=== PATIENT | female | born 1940 | race Caucasian/White ===

== ENCOUNTER 2024-05-10 11:22 | Inpatient (IN) | payer MEDICARE ==
--- NOTE | 2024-05-10 12:04 | ED ---
SOB HPI - General Source: patient, RN notes reviewed Mode of arrival: ambulatory Limitations: no limitations - History of Present Illness MD Complaint: shortness of breath, cough <Elsie Granger - Last Filed: 05/10/24 12:02> <Aneta Nunez - Last Filed: 05/12/24 17:59> - General Chief Complaint: Shortness of Breath Stated Complaint: Low oxygen Time Seen by Provider: 05/10/24 12:00 - History of Present Illness Initial Comments: Quick Note: This is an 84-year-old female who presents to the emergency department for shortness of breath. States that it started a few days ago. She was admitted overnight at [facility] 4 days ago for the same issue. Her heart rate was around 150 bpm at that time. They talked about the possibility of A- fib or congestive heart failure, but never definitively diagnosed her with anything. States that she continues to feel short of breath. Reports associated coughing. This morning her pulse ox was 86%. Denies any associated chest pain or history of similar symptoms in the past. (Elsie Granger) 84-year-old female who presents emergency department reporting shortness of breath. Reports that she was just admitted to [facility] 4 days ago. She states that she was short of breath. She was diagnosed with A-fib, congestive heart failure and dehydration. She got discharged home on colchicine and metoprolol. She has been taking his medications but remained short of breath. Her pulse ox is morning was 86%. She denies any chest pain. No history of congestive heart failure. She does not take any diuretics at home. Does admit to lower extremity swelling. No history of DVT or PE. No calf pain or swelling. No fevers, chills or cough. No other alleviating, precipitating or modifying factors (Aneta Nunez) - Related Data Home Medications Medication Instructions Recorded Confirmed Atorvastatin [Lipitor] 20 mg PO HS 05/10/24 05/10/24 Colchicine 0.3 mg PO BID 05/10/24 05/10/24 Ibandronate Sodium [Boniva] 150 mg PO QMONTHLY 05/10/24 05/10/24 Latanoprost [Latanoprost 0.005%] 1 drop BOTH EYES HS 05/10/24 05/10/24 Loratadine [Claritin] 10 mg PO DAILY 05/10/24 05/10/24 Metoprolol Succinate (ER) [Toprol 25 mg PO HS 05/10/24 05/10/24 Xl] Montelukast [Singulair] 10 mg PO DAILY 05/10/24 05/10/24 Omeprazole [PriLOSEC] 20 mg PO HS 05/10/24 05/10/24 Vit C/E/Zn/Coppr/Lutein/Zeaxan 1 cap PO BID 05/10/24 05/10/24 [Preservision Areds 2 Softgel] Allergies Allergy/AdvReac Type Severity Reaction Status Date / Time No Known Allergies Allergy Verified 05/10/24 17:29 Review of Systems ROS Other: All systems not noted in ROS Statement are negative. <Elsie Granger - Last Filed: 05/10/24 12:02> ROS Other: All systems not noted in ROS Statement are negative. <Aneta Nunez - Last Filed: 05/12/24 17:59> ROS Statement: Those systems with pertinent positive or pertinent negative responses have been documented in the HPI. Past Medical History Past Medical History: No Reported History Past Surgical History: Appendectomy Additional Past Surgical History / Comment(s): mastectomy Past Psychological History: No Psychological Hx Reported Smoking Status: Never smoker Past Alcohol Use History: None Reported Past Drug Use History: None Reported <Elsie Granger - Last Filed: 05/10/24 12:02> General Exam Limitations: no limitations <Elsie Granger - Last Filed: 05/10/24 12:02> General appearance: alert, in no apparent distress Head exam: Present: atraumatic, normocephalic, normal inspection Eye exam: Present: normal appearance, PERRL, EOMI. Absent: scleral icterus, conjunctival injection, periorbital swelling ENT exam: Present: normal exam, mucous membranes moist Neck exam: Present: normal inspection. Absent: tenderness, meningismus, lymphadenopathy Respiratory exam: Present: decreased breath sounds (At the bases). Absent: respiratory distress, wheezes, rales, rhonchi, stridor Cardiovascular Exam: Present: regular rate, normal rhythm, normal heart sounds. Absent: systolic murmur, diastolic murmur, rubs, gallop, clicks GI/Abdominal exam: Present: soft, normal bowel sounds. Absent: distended, tenderness, guarding, rebound, rigid Extremities exam: Present: pedal edema. Absent: tenderness, joint swelling, calf tenderness Back exam: Present: normal inspection Neurological exam: Present: alert, oriented X3, CN II-XII intact Psychiatric exam: Present: normal affect, normal mood Skin exam: Present: warm, dry, intact, normal color. Absent: rash <Aneta Nunez - Last Filed: 05/12/24 17:59> - General Exam Comments Initial Comments: Visual Physical Exam Vital signs reviewed General: Well-appearing, nontoxic, no acute distress. Head: Normocephalic, atraumatic Eyes: PERRLA, EOMI ENT: Airway patent Chest: Nonlabored breathing Skin: No visual rash, normal skin tone Neuro: Alert and oriented 3 Musculoskeletal: No gross abnormalities (Elsie Granger) Course Vital Signs 05/10/24 05/10/24 11:25 17:49 Temperature 97.6 F Pulse Rate 110 H 98 Respiratory 18 16 Rate Blood Pressure 138/78 155/79 O2 Sat by Pulse 93 L 98 Oximetry Medical Decision Making <Elsie Granger - Last Filed: 05/10/24 12:02> - Lab Data Result diagrams: 05/11/24 04:34 05/12/24 06:39 <Aneta Nunez - Last Filed: 05/12/24 17:59> - Medical Decision Making I performed the QuickNote portion of this chart. Signed Elsie Granger PA-C. (Elsie Granger) Was pt. sent in by a medical professional or institution ([facility], LENS ASSORTER, urgent care, hospital, or [facility]...) When possible be specific @ -No Did you speak to anyone other than the patient for history (EMS, parent, family, police, friend...)? What history was obtained from this source @ -I spoke to her family at bedside who helps provide history Did you review nursing and triage notes (agree or disagree)? Why? @ -I reviewed and agree with nursing and triage notes Were old charts reviewed (outside hosp., previous admission, EMS record, old EKG, old radiological studies, urgent care reports/EKG's, [facility] records)? Report findings @ -I requested discharge summary and echo from [facility] Differential Diagnosis (chest pain, altered mental status, abdominal pain women, abdominal pain men, vaginal bleeding, weakness, fever, dyspnea, syncope, headache, dizziness, GI bleed, back pain, seizure, CVA, palpatations, mental health, musculoskeletal)? @ -Differential Dyspnea: Coronary syndrome, arrhythmia, tamponade, asthma, COPD, pulmonary embolism, pneumonia, pneumothorax, pulmonary effusion, anaphylaxis, diabetic ketoacidosis, flailed chest, pulmonary contusion, diaphragmatic rupture, anemia, neuromuscular, this is not meant to be an all-inclusive list. EKG interpreted by me (3pts min.). @ -Yes and demonstrates sinus tachycardia with a rate of 103. DC interval 128. QRS 113. QTc of 406. No acute ST segment elevations or depressions X-rays interpreted by me (1pt min.). @ -Yes which demonstrates pulmonary edema CT interpreted by me (1pt min.). @ -Yes which does not demonstrate a PE U/S interpreted by me (1pt. min.). @ -None done What testing was considered but not performed or refused? (CT, X-rays, U/S, labs)? Why? @ -None What meds were considered but not given or refused? Why? @ -None Did you discuss the management of the patient with other professionals (professionals i.e. , PA, LENS ASSORTER, lab, RT, psych nurse, social contact worker, porter marina, teacher, technology officer, vocational case manager)? Give summary @ -Spoke with Sheet for admission Was smoking cessation discussed for >3mins.? @ -No Was critical care preformed (if so, how long)? @ -No Were there social determinants of health that impacted care today? How? (Homelessness, low income, unemployed, alcoholism, drug addiction, transportation, low edu. Level, literacy, decrease access to med. care, [place] [facility], rehab)? @ -No Was there de-escalation of care discussed even if they declined (Discuss DNR or withdrawal of care, Hospice)? DNR status @ -No What co-morbidities impacted this encounter? (DM, HTN, Smoking, COPD, CAD, Cancer, CVA, ARF, Chemo, Hep., AIDS, mental health diagnosis, sleep apnea, morbid obesity)? @ -A-fib Was patient admitted / discharged? Hospital course, mention meds given and route, prescriptions, significant lab abnormalities, going to OR and other pertinent info. @ -Upon arrival patient seen and evaluated in hallway 10. Thorough history and physical exam was performed. Laboratory studies were conducted. Chest x-ray was performed. This is followed by a CT of the chest due to hypoxia with elevated D-dimer. CT and chest x-ray demonstrate signs of volume overload. She was given 40 mg of Lasix. I did recommend admission for which the patient was agreeable. I spoke with Dr. Doss for the admission Undiagnosed new problem with uncertain prognosis? @ -No Drug Therapy requiring intensive monitoring for toxicity (Heparin, Nitro, Insulin, Cardizem)? @ -No Were any procedures done? @ -No Diagnosis/symptom? @ -Acute hypoxic respiratory failure, acute volume overload Acute, or Chronic, or Acute on Chronic? @ -Acute Uncomplicated (without systemic symptoms) or Complicated (systemic symptoms)? @ -Complicated Side effects of treatment? @ -No Exacerbation, Progression, or Severe Exacerbation? @ -No Poses a threat to life or bodily function? How? (Chest pain, [place], MA, pneumonia, PE, COPD, DKA, ARF, appy, cholecystitis, CVA, Diverticulitis, Homicidal, Suicidal, threat to staff... and all critical care pts) @ -No (Aneta Nunez) - Lab Data Lab Results 05/10/24 05/10/24 05/10/24 Range/Units 13:15 13:15 13:15 WBC 6.4 (3.8-10.6) k/uL RBC 3.49 L (3.80-5.40) m/uL Hgb 10.6 L (11.4-16.0) gm/dL Hct 33.0 L (34.0-46.0) % MCV 94.6 (80.0-100.0) fL MCH 30.3 (25.0-35.0) pg MCHC 32.0 (31.0-37.0) g/dL RDW 13.4 (11.5-15.5) % Plt Count 318 (150-450) k/uL MPV 8.7 Neutrophils % 81 % Lymphocytes % 8 % Monocytes % 8 % Eosinophils % 1 % Basophils % 0 % Neutrophils # 5.2 (1.3-7.7) k/uL Lymphocytes # 0.5 L (1.0-4.8) k/uL Monocytes # 0.5 (0-1.0) k/uL Eosinophils # 0.1 (0-0.7) k/uL Basophils # 0.0 (0-0.2) k/uL Hypochromasia Slight PT 11.4 (10.0-12.5) sec INR 1.0 (<1.2) APTT 22.5 (22.0-30.0) sec D-Dimer 2.89 H (<0.60) mg/L FEU Sodium 140 (137-145) mmol/L Potassium 3.8 (3.5-5.1) mmol/L Chloride 110 H (98-107) mmol/L Carbon Dioxide 20 L (22-30) mmol/L Anion Gap 10 mmol/L BUN 15 (7-17) mg/dL Creatinine 1.02 (0.52-1.04) mg/dL Est GFR (CKD-EPI)AfAm 59 (>60 ml/min/1.73 sqM) Est GFR (CKD-EPI)NonAf 51 (>60 ml/min/1.73 sqM) Glucose 93 (74-99) mg/dL Plasma Lactic Acid Brando (0.7-2.0) mmol/L Calcium 8.8 (8.4-10.2) mg/dL Magnesium 2.2 (1.6-2.3) mg/dL Total Bilirubin 0.3 (0.2-1.3) mg/dL AST 28 (14-36) U/L ALT 33 (4-34) U/L Alkaline Phosphatase 172 H (38-126) U/L Troponin I (0.000-0.034) ng/mL NT-Pro-B Natriuret Pep 1550 pg/mL Total Protein 6.2 L (6.3-8.2) g/dL Albumin 3.4 L (3.5-5.0) g/dL TSH (0.465-4.680) mIU/L Influenza Type A (PCR) (Not Detectd) Influenza Type B (PCR) (Not Detectd) RSV (PCR) (Not Detectd) SARS-CoV-2 (PCR) (Not Detectd) 12/30/24 12/30/24 12/30/24 Range/Units 13:15 13:15 14:45 WBC (3.8-10.6) k/uL RBC (3.80-5.40) m/uL Hgb (11.4-16.0) gm/dL Hct (34.0-46.0) % MCV (80.0-100.0) fL MCH (25.0-35.0) pg MCHC (31.0-37.0) g/dL RDW (11.5-15.5) % Plt Count (150-450) k/uL MPV Neutrophils % % Lymphocytes % % Monocytes % % Eosinophils % % Basophils % % Neutrophils # (1.3-7.7) k/uL Lymphocytes # (1.0-4.8) k/uL Monocytes # (0-1.0) k/uL Eosinophils # (0-0.7) k/uL Basophils # (0-0.2) k/uL Hypochromasia PT (10.0-12.5) sec INR (<1.2) APTT (22.0-30.0) sec D-Dimer (<0.60) mg/L FEU Sodium (137-145) mmol/L Potassium (3.5-5.1) mmol/L Chloride (98-107) mmol/L Carbon Dioxide (22-30) mmol/L Anion Gap mmol/L BUN (7-17) mg/dL Creatinine (0.52-1.04) mg/dL Est GFR (CKD-EPI)AfAm (>60 ml/min/1.73 sqM) Est GFR (CKD-EPI)NonAf (>60 ml/min/1.73 sqM) Glucose (74-99) mg/dL Plasma Lactic Acid Brando 1.4 (0.7-2.0) mmol/L Calcium (8.4-10.2) mg/dL Magnesium (1.6-2.3) mg/dL Total Bilirubin (0.2-1.3) mg/dL AST (14-36) U/L ALT (4-34) U/L Alkaline Phosphatase (38-126) U/L Troponin I <0.012 (0.000-0.034) ng/mL NT-Pro-B Natriuret Pep pg/mL Total Protein (6.3-8.2) g/dL Albumin (3.5-5.0) g/dL TSH (0.465-4.680) mIU/L Influenza Type A (PCR) Not Detected (Not Detectd) Influenza Type B (PCR) Not Detected (Not Detectd) RSV (PCR) Not Detected (Not Detectd) SARS-CoV-2 (PCR) Not Detected (Not Detectd) 05/11/24 05/11/24 05/11/24 Range/Units 04:34 04:34 04:34 WBC 5.0 (3.8-10.6) k/uL RBC 3.25 L (3.80-5.40) m/uL Hgb 9.8 L (11.4-16.0) gm/dL Hct 30.4 L (34.0-46.0) % MCV 93.7 (80.0-100.0) fL MCH 30.1 (25.0-35.0) pg MCHC 32.1 (31.0-37.0) g/dL RDW 13.6 (11.5-15.5) % Plt Count 263 (150-450) k/uL MPV 7.9 Neutrophils % 74 % Lymphocytes % 10 % Monocytes % 11 % Eosinophils % 2 % Basophils % 1 % Neutrophils # 3.7 (1.3-7.7) k/uL Lymphocytes # 0.5 L (1.0-4.8) k/uL Monocytes # 0.5 (0-1.0) k/uL Eosinophils # 0.1 (0-0.7) k/uL Basophils # 0.0 (0-0.2) k/uL Hypochromasia Slight PT (10.0-12.5) sec INR (<1.2) APTT (22.0-30.0) sec D-Dimer (<0.60) mg/L FEU Sodium 139 (137-145) mmol/L Potassium 3.6 (3.5-5.1) mmol/L Chloride 108 H (98-107) mmol/L Carbon Dioxide 21 L (22-30) mmol/L Anion Gap 10 mmol/L BUN 14 (7-17) mg/dL Creatinine 1.05 H (0.52-1.04) mg/dL Est GFR (CKD-EPI)AfAm 57 (>60 ml/min/1.73 sqM) Est GFR (CKD-EPI)NonAf 49 (>60 ml/min/1.73 sqM) Glucose 79 (74-99) mg/dL Plasma Lactic Acid Brando (0.7-2.0) mmol/L Calcium 8.7 (8.4-10.2) mg/dL Magnesium (1.6-2.3) mg/dL Total Bilirubin (0.2-1.3) mg/dL AST (14-36) U/L ALT (4-34) U/L Alkaline Phosphatase (38-126) U/L Troponin I (0.000-0.034) ng/mL NT-Pro-B Natriuret Pep pg/mL Total Protein (6.3-8.2) g/dL Albumin (3.5-5.0) g/dL TSH 1.710 (0.465-4.680) mIU/L Influenza Type A (PCR) (Not Detectd) Influenza Type B (PCR) (Not Detectd) RSV (PCR) (Not Detectd) SARS-CoV-2 (PCR) (Not Detectd) Disposition <Elsie Granger - Last Filed: 05/10/24 12:02> Is patient prescribed a controlled substance at d/c from ED?: No Time of Disposition: 18:18 Decision to Admit Reason: Admit from EC Decision Date: 05/10/24 Decision Time: 18:18 <Aneta Nunez - Last Filed: 05/12/24 17:59> Clinical Impression: Hypoxia, CHF (congestive heart failure) Disposition: ADMITTED IP TO THIS HOSP Condition: Stable
[2024-05-10 13:55] LABS: ALT 33 U/L (4-34); AST 28 U/L (14-36); African American GFR (CKD) 59 (>60 ml/min/1.73 sqM); Albumin 3.4 g/dL (3.5-5.0); Alkaline Phosphatase 172 U/L (38-126); Anion Gap 10 mmol/L; Blood Urea Nitrogen 15 mg/dL (7-17); Calcium 8.8 mg/dL (8.4-10.2); Carbon Dioxide 20 mmol/L (22-30); Chloride 110 mmol/L (98-107); Glucose 93 mg/dL (74-99); Magnesium 2.2 mg/dL (1.6-2.3); Non-African American GFR(CKD) 51 (>60 ml/min/1.73 sqM); Potassium 3.8 mmol/L (3.5-5.1); Sodium 140 mmol/L (137-145); Total Bilirubin 0.3 mg/dL (0.2-1.3); Total Protein 6.2 g/dL (6.3-8.2)
[2024-05-10 14:03] LABS: NT-Pro-B-Type Natriuretic Pept 1550 pg/mL
[2024-05-10 14:34] LABS: Basophils % (A) 0 %; Eosinophils # (A) 0.1 k/uL (0-0.7); Eosinophils % (A) 1 %; HGB 10.6 gm/dL (11.4-16.0); Hypochromasia Slight; Lymphocytes # (A) 0.5 k/uL (1.0-4.8); Lymphocytes % (A) 8 %; MCH 30.3 pg (25.0-35.0); MCV 94.6 fL (80.0-100.0); Mean Platelet Volume 8.7; Monocytes # (A) 0.5 k/uL (0-1.0); Monocytes % (A) 8 %; Neutrophils # (A) 5.2 k/uL (1.3-7.7); Neutrophils % (A) 81 %; Platelet Count 318 k/uL (150-450); RBC 3.49 m/uL (3.80-5.40); RDW 13.4 % (11.5-15.5); WBC 6.4 k/uL (3.8-10.6)
[2024-05-10 14:36] LABS: Partial Thromboplastin Time 22.5 sec (22.0-30.0); Prothrombin Time 11.4 sec (10.0-12.5)
--- NOTE | 2024-05-10 14:51 | XR ---
Chest, 2 view. HISTORY: Cough. COMPARISON: TECHNIQUE: PA and lateral views the chest are obtained. FINDINGS: There has been interval development of mild pulmonary vascular congestion and small amount of bilater al pleural effusions. The findings are most consistent with CHF. Short-term follow-up is recommended. There is no pneumothorax. The osseous structures are intact. IMPRESSION: Findings most consistent with CHF. Clinical correlation and short-term follow-up is mariela berger. [facility], , 05/10/2024 2:49 PM
--- NOTE | 2024-05-10 16:18 | CT ---
EXAMINATION TYPE: CT chest angio for PE DATE OF EXAM: 05/10/2024 COMPARISON: None CLINICAL INDICATION: Female, 84 years old with history of elevated d-dimer; PHH, annamaria, SOB or PAIN TECHNIQUE: Ct angiogram of the chest performed with with IV Contrast, patient injected with 66ml mL of Isovue 30 0. MIP images are created and reviewed. 3-D postprocessing was performed CT DLP: [address] CTDI: mGy Automated exposure control for dose reduction was used. FINDINGS: There are moderate to large bilateral pleural effusions. There is partially consolidated infiltrates in the lung bases either indicating pneumonia or compressive atelectasis from the effusions. There ar e no suspicious lung masses or nodules. There are no filling defects within the pulmonary arterial circulation to suggest pulmonary embolism. Great vessels of the chest are normal. There is an enlarged 17.6 mm right hilar lymph node. There is moderate cardiomegaly. Limited scanning through the upper abdomen reveals no gross abnormality. No focal osseous lesions are seen. IMPRESSION: 1. No evidence of pulmonary embolism. 2. Large large bilateral pleural effusions. 3. Moderate cardiomegaly. 4. bibasilar lung infiltrates consistent with pneumonic infiltrates or atelectasis.. 5. Enlarged right hilar lymph node. [facility], , 05/10/2024 4:16 PM
[2024-05-10] MEDS ORDERED: NALOXONE 0.4 MG/ML 1 ML VIAL IV PRN (18:18)
[2024-05-10] MEDS: FUROSEMIDE 10 MG/ML 4 ML VIAL IV STA (18:52)
[2024-05-10] MEDS: METOPROLOL TARTRATE 25 MG TAB PO SCH (21:07)
[2024-05-11 04:50] LABS: Basophils % (A) 1 %; Eosinophils # (A) 0.1 k/uL (0-0.7); Eosinophils % (A) 2 %; HCT 30.4 % (34.0-46.0); HGB 9.8 gm/dL (11.4-16.0); Hypochromasia Slight; Lymphocytes # (A) 0.5 k/uL (1.0-4.8); Lymphocytes % (A) 10 %; MCH 30.1 pg (25.0-35.0); MCHC 32.1 g/dL (31.0-37.0); MCV 93.7 fL (80.0-100.0); Mean Platelet Volume 7.9; Monocytes # (A) 0.5 k/uL (0-1.0); Monocytes % (A) 11 %; Neutrophils # (A) 3.7 k/uL (1.3-7.7); Neutrophils % (A) 74 %; Platelet Count 263 k/uL (150-450); RBC 3.25 m/uL (3.80-5.40); RDW 13.6 % (11.5-15.5)
[2024-05-11 05:10] LABS: African American GFR (CKD) 57 (>60 ml/min/1.73 sqM); Blood Urea Nitrogen 14 mg/dL (7-17); Calcium 8.7 mg/dL (8.4-10.2); Carbon Dioxide 21 mmol/L (22-30); Chloride 108 mmol/L (98-107); Glucose 79 mg/dL (74-99); Non-African American GFR(CKD) 49 (>60 ml/min/1.73 sqM)
[2024-05-11 05:33] LABS: Anion Gap 10 mmol/L; Potassium 3.6 mmol/L (3.5-5.1); Sodium 139 mmol/L (137-145)
[2024-05-11] MEDS: FUROSEMIDE 10 MG/ML 4 ML VIAL IV SCH (09:46)
[2024-05-11] MEDS: FUROSEMIDE 10 MG/ML 2 ML VIAL IV SCH (09:47)
--- NOTE | 2024-05-11 11:34 | P.CRDCN ---
History of Present Illness History of present illness: HISTORY OF PRESENT ILLNESS: This is a 84-year-old female with a past medical history significant for hyperlipidemia. Patient does not follow with a bench assembler. We have been asked to see the patient in consultation for congestive heart failure. Patient examined at the bedside. Patient states last she started having palpitations. She states she called EMS and she reports that her heart rate was around 150 at that time. She also reports that her oxygen has been running low in the 80s. She states that [facility] and stayed overnight and then was discharged home the following morning. Patient reports feeling short of breath recently. She also reports having increased lower extremity edema. She reports a weight gain of about 10 pounds over the past few days. She denies any known history of CHF. She denies any history of CAD. She is nondiabetic. She is not a cigarette smoker. Patient did have an echocardiogram performed at [facility] revealing ejection fraction 55%, mild to moderate TR, RVSP 30 to 35 mmHg, mild MR, mild AR, moderate circumferential pericardial effusion with fibrin and moderate pleural effusion. No evidence of tamponade. Patient states she did not see a bench assembler during that admission. DIAGNOSTICS: - EKG reveals sinus tachycardia. Repeat EKG reveals atrial flutter versus atrial tachycardia - Chest xray findings consistent with CHF. Mild pulmonary vascular congestion and small bilateral pleural effusions - Chest CTA negative for PE, large bilateral pleural effusions, moderate cardio megaly - Laboratory data: WBC 5.0. Hemoglobin 9.8. Platelet count 263. D-dimer 2.89. Sodium 139. Potassium 3.6. BUN 14. Creatinine 1.05. Troponin negative x 1. proBNP 1550. - Current home cardiac medications include metoprolol succinate 25 mg at night and Lipitor 20 mg at night REVIEW OF SYSTEMS: At the time of my exam: CONSTITUTIONAL: Denies fever or chills. HEENT: Denies blurred vision, vision changes, or eye pain. Denies hemoptysis CARDIOVASCULAR: Denies chest pain. Denies orthopnea. Denies PND. Denies palpitations RESPIRATORY: Denies shortness of breath. GASTROINTESTINAL: Denies abdominal pain. Denies nausea or vomiting. HEMATOLOGIC: Denies bleeding disorders. GENITOURINARY: Denies any blood in urine. SKIN: Denies pruitis. Denies rash. PHYSICAL EXAM: VITAL SIGNS: Reviewed. GENERAL: Well-developed in no acute distress. HEENT: Head is normocephalic. Pupils are equal, round. Sclerae anicteric. Mucous membranes of the mouth are moist. Neck supple. No JVD or thyromegaly LUNGS: Respirations even and unlabored. Lungs diminished to auscultation bilaterally. HEART: Regular rate and rhythm. S1 and S2 heard. ABDOMEN: Soft. Nondistended. Nontender. EXTREMITIES: Normal range of motion. No clubbing or cyanosis. Peripheral pulses intact. 2+ bilateral lower extremity edema NEUROLOGIC: Awake and alert. Oriented x 3. ASSESSMENT: Shortness of breath Acute heart failure with preserved EF Bilateral pleural effusions Moderate pericardial effusion without tamponade, noted on recent echo at [facility] Tachycardia, atrial flutter versus atrial tachycardia Hyperlipidemia PLAN: Obtain 2D echo to reassess pericardial effusion Continue telemetry monitoring Continue metoprolol tartrate 25 mg twice a day Continue IV Lasix 20 mg twice a day Daily weights, accurate intake and output, and monitoring of kidney function Add Farxiga 10 mg daily Possible event monitor at discharge Further recommendations pending patient course Nurse practitioner note has been reviewed by physician. Signing provider agrees with the documented findings, assessment, and plan of care documented by DIETETIC AIDE as a scribe. Past Medical History Past Medical History: No Reported History History of Any Multi-Drug Resistant Organisms: None Reported Past Surgical History: Appendectomy Additional Past Surgical History / Comment(s): mastectomy Past Anesthesia/Blood Transfusion Reactions: No Reported Reaction Smoking Status: Never smoker Medications and Allergies Home Medications Medication Instructions Recorded Confirmed Type Atorvastatin [Lipitor] 20 mg PO HS 05/10/24 05/10/24 History Colchicine 0.3 mg PO BID 05/10/24 05/10/24 History Ibandronate Sodium [Boniva] 150 mg PO QMONTHLY 05/10/24 05/10/24 History Latanoprost [Latanoprost 0.005%] 1 drop BOTH EYES HS 05/10/24 05/10/24 History Loratadine [Claritin] 10 mg PO DAILY 05/10/24 05/10/24 History Metoprolol Succinate (ER) [Toprol 25 mg PO HS 05/10/24 05/10/24 History Xl] Montelukast [Singulair] 10 mg PO DAILY 05/10/24 05/10/24 History Omeprazole [PriLOSEC] 20 mg PO HS 05/10/24 05/10/24 History Vit C/E/Zn/Coppr/Lutein/Zeaxan 1 cap PO BID 05/10/24 05/10/24 History [Preservision Areds 2 Softgel] Allergies Allergy/AdvReac Type Severity Reaction Status Date / Time No Known Allergies Allergy Verified 05/10/24 17:29 Physical Exam Vitals: Vital Signs Temp Pulse Pulse Resp BP BP Pulse Ox 05/11/24 07:31 97.9 F 101 H 19 112/62 95 05/11/24 01:19 98.1 F 94 18 102/61 98 05/10/24 20:00 97.4 F L 98 17 143/80 98 05/10/24 18:56 98 F 99 16 152/83 97 05/10/24 17:49 98 16 155/79 98 05/10/24 11:25 97.6 F 110 H 18 138/78 93 L Intake and Output 05/10/24 05/11/24 05/11/24 22:59 06:59 14:59 Intake Total 250 Balance 250 Intake: Oral 250 Other: Voiding Method Toilet Toilet # Voids 2 1 Weight 48.988 kg Results 05/11/24 04:34 05/11/24 04:34 Cardiac Enzymes 05/10/24 05/10/24 Range/Units 13:15 13:15 AST 28 (14-36) U/L Troponin I <0.012 (0.000-0.034) ng/mL Coagulation 05/10/24 Range/Units 13:15 PT 11.4 (10.0-12.5) sec APTT 22.5 (22.0-30.0) sec CBC 05/10/24 05/11/24 Range/Units 13:15 04:34 WBC 6.4 5.0 (3.8-10.6) k/uL RBC 3.49 L 3.25 L (3.80-5.40) m/uL Hgb 10.6 L 9.8 L (11.4-16.0) gm/dL Hct 33.0 L 30.4 L (34.0-46.0) % Plt Count 318 263 (150-450) k/uL Comprehensive Metabolic Panel 05/10/24 05/11/24 Range/Units 13:15 04:34 Sodium 140 139 (137-145) mmol/L Potassium 3.8 3.6 (3.5-5.1) mmol/L Chloride 110 H 108 H (98-107) mmol/L Carbon Dioxide 20 L 21 L (22-30) mmol/L BUN 15 14 (7-17) mg/dL Creatinine 1.02 1.05 H (0.52-1.04) mg/dL Glucose 93 79 (74-99) mg/dL Calcium 8.8 8.7 (8.4-10.2) mg/dL AST 28 (14-36) U/L ALT 33 (4-34) U/L Alkaline Phosphatase 172 H (38-126) U/L Total Protein 6.2 L (6.3-8.2) g/dL Albumin 3.4 L (3.5-5.0) g/dL Current Medications Generic Name Dose Route Start Last Admin Trade Name Freq PRN Reason Stop Dose Admin Furosemide 40 mg 05/11/24 08:00 Furosemide 10 Mg/Ml 4 Ml Vial IV BID DYLON Metoprolol Tartrate 25 mg 05/10/24 21:15 05/10/24 21:07 Metoprolol Tartrate 25 Mg Tab PO 25 mg BID DYLON Administration Naloxone HCl 0.2 mg 05/10/24 18:18 Naloxone 0.4 Mg/Ml 1 Ml Vial IV Q2M PRN Opioid Reversal Intake and Output 05/10/24 05/11/24 05/11/24 22:59 06:59 14:59 Intake Total 250 Balance 250 Intake: Oral 250 Other: Voiding Method Toilet Toilet # Voids 2 1 Weight 48.988 kg 05/11/24 04:34 05/11/24 04:34
[2024-05-11] MEDS: DAPAGLIFLOZIN PROPANEDIOL 10 MG TABLET PO SCH (13:08)
--- NOTE | 2024-05-11 15:18 | P.HPIM ---
History of Present Illness H&P Date: 05/11/24 History of present illness; patient is a 84-year-old lady with past medical history significant for hyperlipidemia who presents the ER for shortness of breath. Patient stated she has been short of breath for the last 4 days, shortness of breath was present on rest as on exertion. There was no complaint of orthopnea or PND. There was complaint of swelling of lower extremities, patient states that she gained like 10 pounds over the last week. Patient does complain of palpitations. There is no complaint of chest pain. Patient was recently admitted to [facility] for similar complaints. Because of this shortness of breath patient presented the ER Initial lab work done in the ER showed showed W6.4, hemoglobin 10.6, platelet count 318, D-dimer 2.89, sodium 140, potassium 3.8, BUN 15, creatinine 1.02, troponin 0.012, Influenza A not detected Influenza B not detected RSV not detected COVID-19 not detected EKG done in the ER showed heart rate of 103, no ST segment elevation or depression seen, no T-wave inversions seen. Chest x-ray done in the ER showed findings most consistent with CHF CT chest done negative for PE Patient admitted to internal medicine service REVIEW OF SYSTEMS: CONSTITUTIONAL: No fever, no malaise, no fatigue. HEENT: No recent visual problems or hearing problems. Denied any sore throat. CARDIOVASCULAR: As mentioned above PULMONARY: As mentioned above GASTROINTESTINAL: No diarrhea, no nausea, no vomiting, no abdominal pain. NEUROLOGICAL: No headaches, no weakness, no numbness. HEMATOLOGICAL: Denies any bleeding or petechiae. GENITOURINARY: Denies any burning micturition, frequency, or urgency. MUSCULOSKELETAL/RHEUMATOLOGICAL: Denies any joint pain, swelling, or any muscle pain. ENDOCRINE: Denies any polyuria or polydipsia. The rest of the 14-point review of systems is negative. PHYSICAL EXAMINATION: GENERAL: The patient is alert and oriented x3, not in any acute distress. Well developed, well nourished. HEENT: Pupils are round and equally reacting to light. EOMI. No scleral icterus. No conjunctival pallor. Normocephalic, atraumatic. No pharyngeal erythema. No thyromegaly. CARDIOVASCULAR: S1 and S2 present. No murmurs, rubs, or gallops. PULMONARY: Good air entry bilaterally, no wheezing or crackles. ABDOMEN: Soft, nontender, nondistended, normoactive bowel sounds. No palpable organomegaly. MUSCULOSKELETAL: No joint swelling or deformity. EXTREMITIES: No cyanosis, clubbing. 1+ pitting edema lower extremities bilaterally NEUROLOGICAL: Gross neurological examination did not reveal any focal deficits. SKIN: No rashes. Assessment and plan Shortness of breath Acute diastolic CHF Bilateral pleural effusion Hyperlipidemia Monitor vital signs Monitor CBC Monitor CMP Continue telemetry monitoring 8I's and O's Daily weights Start IV Lasix 20 mg every 12 Ordered Lopressor Ordered 2D echo Resume home meds Consult cardiology Labs and medication were reviewed.. Continue same treatment. Continue with symptomatic treatment. Resume home medication. Monitor labs and vitals. DVT and GI prophylaxis. Further recommendations as per clinical course of the patient Dictation was produced using [employer] dictation software. please excuse any grammatical, word or spelling errors. Past Medical History Past Medical History: No Reported History History of Any Multi-Drug Resistant Organisms: None Reported Past Surgical History: Appendectomy Additional Past Surgical History / Comment(s): mastectomy Past Anesthesia/Blood Transfusion Reactions: No Reported Reaction Smoking Status: Never smoker Medications and Allergies Home Medications Medication Instructions Recorded Confirmed Type Atorvastatin [Lipitor] 20 mg PO HS 05/10/24 05/10/24 History Colchicine 0.3 mg PO BID 05/10/24 05/10/24 History Ibandronate Sodium [Boniva] 150 mg PO QMONTHLY 05/10/24 05/10/24 History Latanoprost [Latanoprost 0.005%] 1 drop BOTH EYES HS 05/10/24 05/10/24 History Loratadine [Claritin] 10 mg PO DAILY 05/10/24 05/10/24 History Metoprolol Succinate (ER) [Toprol 25 mg PO HS 05/10/24 05/10/24 History Xl] Montelukast [Singulair] 10 mg PO DAILY 05/10/24 05/10/24 History Omeprazole [PriLOSEC] 20 mg PO HS 05/10/24 05/10/24 History Vit C/E/Zn/Coppr/Lutein/Zeaxan 1 cap PO BID 05/10/24 05/10/24 History [Preservision Areds 2 Softgel] Allergies Allergy/AdvReac Type Severity Reaction Status Date / Time No Known Allergies Allergy Verified 05/10/24 17:29 Physical Exam Vitals: Vital Signs Temp Pulse Pulse Resp BP BP Pulse Ox 05/11/24 07:31 97.9 F 101 H 19 112/62 95 05/11/24 01:19 98.1 F 94 18 102/61 98 05/10/24 20:00 97.4 F L 98 17 143/80 98 05/10/24 18:56 98 F 99 16 152/83 97 05/10/24 17:49 98 16 155/79 98 05/10/24 11:25 97.6 F 110 H 18 138/78 93 L Intake and Output 05/10/24 05/11/24 05/11/24 22:59 06:59 14:59 Intake Total 250 Balance 250 Intake: Oral 250 Other: Voiding Method Toilet Toilet # Voids 2 1 Weight 48.988 kg Results CBC & Chem 7: 05/11/24 04:34 05/11/24 04:34 Labs: Abnormal Lab Results - Last 24 Hours (Table) 05/10/24 05/10/24 05/10/24 Range/Units 13:15 13:15 13:15 RBC 3.49 L (3.80-5.40) m/uL Hgb 10.6 L (11.4-16.0) gm/dL Hct 33.0 L (34.0-46.0) % Lymphocytes # 0.5 L (1.0-4.8) k/uL D-Dimer 2.89 H (<0.60) mg/L FEU Chloride 110 H (98-107) mmol/L Carbon Dioxide 20 L (22-30) mmol/L Creatinine (0.52-1.04) mg/dL Alkaline Phosphatase 172 H (38-126) U/L Total Protein 6.2 L (6.3-8.2) g/dL Albumin 3.4 L (3.5-5.0) g/dL 05/11/24 05/11/24 Range/Units 04:34 04:34 RBC 3.25 L (3.80-5.40) m/uL Hgb 9.8 L (11.4-16.0) gm/dL Hct 30.4 L (34.0-46.0) % Lymphocytes # 0.5 L (1.0-4.8) k/uL D-Dimer (<0.60) mg/L FEU Chloride 108 H (98-107) mmol/L Carbon Dioxide 21 L (22-30) mmol/L Creatinine 1.05 H (0.52-1.04) mg/dL Alkaline Phosphatase (38-126) U/L Total Protein (6.3-8.2) g/dL Albumin (3.5-5.0) g/dL Thrombosis Risk Factor Assmnt - Choose All That Apply Any of the Below Risk Factors Present?: No Each Risk Factor Represents 3 Points: Age 75 years or older Thrombosis Risk Factor Assessment Total Risk Factor Score: 3 Thrombosis Risk Factor Assessment Level: Moderate Risk
[2024-05-11 15:27] VITALS: BMI 18.5
--- NOTE | 2024-05-11 17:45 | CA ---
Transthoracic Echo Report Name: Kelley Molina Age: 84 Gender: F : 1940 Exam Date: 05/11/2024 11:56 Exam Location: [facility] Ht (in): 64 Wt (lb): 108 Ordering Physician: Margarita Pineda Attending/Referring Phys: [id number], Edwin Marketing Content Specialist Mercedez Dowling, HALINA Procedure CPT: Indications: LV function, CHF, pericardial effusion Cardiac Hx: Technical Quality: Good Contrast 1: Total Dose (mL): Contrast 2: Total Dose (mL): MEASUREMENTS (Male / Female) Normal Values 2D ECHO LV Diastolic Diameter PLAX 3.5 cm 4.2 - 5.9 / 3.9 - 5.3 cm LV Systolic Diameter PLAX 2.1 cm IVS Diastolic Thickness 0.7 cm 0.6 - 1.0 / 0.6 - 0.9 cm LVPW Diastolic Thickness 0.7 cm 0.6 - 1.0 / 0.6 - 0.9 cm LV Relative Wall Thickness 0.4 RV Internal Dim ED PLAX 2.5 cm LA Systolic Diameter LX 2.0 cm 3.0 - 4.0 / 2.7 - 3.8 cm LA Volume 27.0 cm??? 18 - 58 / 22 - 52 cm??? LA Volume Index 18.2 cm???/m??? 16 - 28 cm???/m??? M-MODE Aortic Root Diameter MM 3.3 cm AV Cusp Separation MM 1.7 cm DOPPLER AV Peak Velocity 129.4 cm/s AV Peak Gradient 6.7 mmHg AI Peak Velocity 254.5 cm/s AI Peak Gradient 25.9 mmHg AI Pressure Half Time 422.3 ms MV Area PHT 3.4 cm??? Mitral E Point Velocity 90.2 cm/s Mitral A Point Velocity 120.9 cm/s Mitral E to A Ratio 0.7 MV Deceleration Time 220.4 ms TR Peak Velocity 234.0 cm/s TR Peak Gradient 21.9 mmHg Right Ventricular Systolic Press 37.0 mmHg FINDINGS Left Ventricle Left ventricular ejection fraction is estimated at 55-60 %. Small left ventricular cavity. Left ventricular wall thickness normal. Normal left ventricular wall motion. Right Ventricle Normal right ventricular size. Right ventricular systolic pressure within normal limits. Right Atrium Normal right atrial size. No right atrial thrombus or mass seen. Left Atrium Normal left atrial size. No left atrial thrombus or mass present. Mitral Valve Structurally normal mitral valve. No mitral stenosis, regurgitation or prolapse. Aortic Valve Trileaflet aortic valve. Trace to mild aortic regurgitation. Tricuspid Valve Structurally normal tricuspid valve. Mild tricuspid regurgitation. Pulmonic Valve Structurally normal pulmonic valve. No pulmonic regurgitation. Pericardium Moderate pericardial effusion. Aorta Normal size aortic root and proximal ascending aorta. CONCLUSIONS Normal biventricular systolic function No significant valvular abnormalities noted Moderate circumferential pericardial effusion No evidence of RV collapse in diastole Previewed by: Dr. David Virgen MD (Electronically Signed) Final Date: 11 May 2024 17:44
[2024-05-11] MEDS: LATANOPROST 0.005% OPHTH DROPS 2.5 ML BTL BOTH EYES SCH (20:39)
[2024-05-11] MEDS: ATORVASTATIN 20 MG TAB PO SCH (20:39)
[2024-05-12 07:55] LABS: African American GFR (CKD) 46 (>60 ml/min/1.73 sqM); Anion Gap 7 mmol/L; Blood Urea Nitrogen 22 mg/dL (7-17); Calcium 8.7 mg/dL (8.4-10.2); Carbon Dioxide 24 mmol/L (22-30); Chloride 107 mmol/L (98-107); Glucose 82 mg/dL (74-99); Non-African American GFR(CKD) 39 (>60 ml/min/1.73 sqM); Potassium 3.7 mmol/L (3.5-5.1); Sodium 138 mmol/L (137-145)
[2024-05-12] MEDS: MONTELUKAST 10 MG TAB PO SCH (08:39)
[2024-05-12] MEDS: LORATADINE 10 MG TAB PO SCH (08:39)
--- NOTE | 2024-05-12 13:06 | P.CNPUL ---
History of Present Illness Consult date: 05/12/24 Requesting physician: Juliocesar Juarez Reason for consult: dyspnea, hypoxemia Chief complaint: Difficulty breathing, CHF. History of present illness: Pulmonary consult dated May 12, 2024. 84-year-old female who was seen in the emergency department, on May 10. The patient presented with shortness of breath. She had been having shortness of breath for a few days prior to admission. The patient was recently at [facility], for 4 days, with shortness of breath. She states that she never was given a diagnosis. They thought maybe she had atrial fibrillation and/or congestive heart failure. The patient is seen today in room 354. Currently, she is on 2 L of oxygen. She is resting comfortably in bed. She is awake and alert. She is not receiving any IV fluids. Her chest x-ray shows evidence of CHF. Her CTA was negative for pulmonary embolism. Her N-terminal proBNP was elevated at 1550. Current labs include a white count of 5, hemoglobin 9.8, hematocrit 30.4, and a normal platelet count. Sodium 138, potassium 3.7, chlorides 107, CO2 24, BUN 22, creatinine 1.26. Viral screen was negative. TSH was normal. Review of Systems REVIEW OF SYSTEMS: CONSTITUTIONAL: [Negative.] NEUROLOGIC: [ Negative.] HEENT: [ Negative.] CARDIAC: Lower extremity edema. PULMONARY: Shortness of breath. GI: [Negative.] : [Negative.] RHEUMATOLOGIC: [ Negative.] IMMUNOLOGIC: [ Negative.] ENDOCRINE: [Negative. ] DERMATOLOGIC: [Negative.] Past Medical History Past Medical History: No Reported History History of Any Multi-Drug Resistant Organisms: None Reported Past Surgical History: Appendectomy Additional Past Surgical History / Comment(s): mastectomy Past Anesthesia/Blood Transfusion Reactions: No Reported Reaction Smoking Status: Never smoker Medications and Allergies Home Medications Medication Instructions Recorded Confirmed Type Atorvastatin [Lipitor] 20 mg PO HS 05/10/24 05/10/24 History Colchicine 0.3 mg PO BID 05/10/24 05/10/24 History Ibandronate Sodium [Boniva] 150 mg PO QMONTHLY 05/10/24 05/10/24 History Latanoprost [Latanoprost 0.005%] 1 drop BOTH EYES HS 05/10/24 05/10/24 History Loratadine [Claritin] 10 mg PO DAILY 05/10/24 05/10/24 History Metoprolol Succinate (ER) [Toprol 25 mg PO HS 05/10/24 05/10/24 History Xl] Montelukast [Singulair] 10 mg PO DAILY 05/10/24 05/10/24 History Omeprazole [PriLOSEC] 20 mg PO HS 05/10/24 05/10/24 History Vit C/E/Zn/Coppr/Lutein/Zeaxan 1 cap PO BID 05/10/24 05/10/24 History [Preservision Areds 2 Softgel] Allergies Allergy/AdvReac Type Severity Reaction Status Date / Time No Known Allergies Allergy Verified 05/10/24 17:29 Physical Exam Osteopathic Statement: *. No significant issues noted on an osteopathic structural exam other than those noted in the History and Physical/Consult. Vitals: Vital Signs Temp Pulse Resp BP Pulse Ox 05/12/24 11:35 84 17 110/69 97 05/12/24 08:40 98.3 F 103 H 19 100/63 93 L 05/12/24 03:57 98.0 F 97 18 100/64 96 05/12/24 00:00 98.2 F 96 19 102/66 95 05/11/24 20:34 102 H 21 125/58 96 05/11/24 13:26 97.6 F 100 20 100/60 96 Intake and Output 05/11/24 05/12/24 05/12/24 22:59 06:59 14:59 Other: Voiding Method Toilet Toilet Toilet # Voids 2 Weight 48.988 kg 46.1 kg No acute distress, oriented 3. Currently on 2 L. No respiratory distress. HEENT examination is grossly unremarkable. Mucous membranes are moist. No oral lesions. Neck supple. Full range of motion. No adenopathy thyromegaly or neck vein distention. Cardiovascular examination reveals regular rhythm rate. S1-S2 normal. No S3 or S4. Lungs reveal bibasilar crackles. Breath sounds equal bilaterally. No rhonchi or wheezes. Abdomen soft bowel sounds are heard. No masses or tenderness. Extremities are intact. No cyanosis or clubbing. Mild edema present. Skin is without rash or lesion. Neurologic examination is brief but nonfocal. Results - Laboratory Findings CBC and BMP: 05/11/24 04:34 05/12/24 06:39 PT/INR, D-dimer PT 11.4 sec (10.0-12.5) 05/10/24 13:15 INR 1.0 (<1.2) 05/10/24 13:15 D-Dimer 2.89 mg/L FEU (<0.60) H 05/10/24 13:15 Abnormal lab findings: Abnormal Labs 05/10/24 05/10/24 05/10/24 13:15 13:15 13:15 RBC 3.49 L Hgb 10.6 L Hct 33.0 L Lymphocytes # 0.5 L D-Dimer 2.89 H Chloride 110 H Carbon Dioxide 20 L BUN Creatinine Alkaline Phosphatase 172 H Total Protein 6.2 L Albumin 3.4 L 05/11/24 05/11/24 05/12/24 04:34 04:34 06:39 RBC 3.25 L Hgb 9.8 L Hct 30.4 L Lymphocytes # 0.5 L D-Dimer Chloride 108 H Carbon Dioxide 21 L BUN 22 H Creatinine 1.05 H 1.26 H Alkaline Phosphatase Total Protein Albumin - Diagnostic Findings Chest x-ray: image reviewed CT scan - chest: image reviewed Assessment and Plan Assessment: Acute hypoxemic respiratory failure, likely secondary to CHF. History of hypertension. History of hyperlipidemia. History of gout. History of osteoporosis. History of gastroesophageal reflux disease. Plan: Plan dated May 12, 2024. The patient is seen today in room 354. She is resting comfortably in bed. She is on 2 L. She is not receiving any IV fluids. Her examination was reveals bibasilar crackles, and mild lower extremity edema, along with her chest x-ray and CAT scan which suggest fluid overload, suggest to me that the diagnosis is primarily congestive heart failure. Labs, x-rays, and all medications are reviewed. The patient is overall prognosis remains guarded. She is a lifelong non-smoker. She has no history of any lung disease. Time with Patient: Greater than 30
--- NOTE | 2024-05-12 13:52 | P.PN ---
Subjective Progress Note Date: 05/12/24 patient is a 84-year-old lady with past medical history significant for hyperlipidemia who presents the ER for shortness of breath. Patient stated she has been short of breath for the last 4 days, shortness of breath was present on rest as on exertion. There was no complaint of orthopnea or PND. There was complaint of swelling of lower extremities, patient states that she gained like 10 pounds over the last week. Patient does complain of palpitations. There is no complaint of chest pain. Patient was recently admitted to [facility] for similar complaints. Because of this shortness of breath patient presented the ER Initial lab work done in the ER showed showed W6.4, hemoglobin 10.6, platelet count 318, D-dimer 2.89, sodium 140, potassium 3.8, BUN 15, creatinine 1.02, troponin 0.012, Influenza A not detected Influenza B not detected RSV not detected COVID-19 not detected EKG done in the ER showed heart rate of 103, no ST segment elevation or depression seen, no T-wave inversions seen. Chest x-ray done in the ER showed findings most consistent with CHF CT chest done negative for PE Patient admitted to internal medicine service 05/12. Patient seen and examined. States she feels better compared to yesterday, still has swelling of lower extremities. REVIEW OF SYSTEMS: CONSTITUTIONAL: No fever, no malaise,. CARDIOVASCULAR: No chest pain, no palpitations, no syncope. PULMONARY: No shortness of breath, no cough, GASTROINTESTINAL: No diarrhea, no nausea, no vomiting, no abdominal pain. NEUROLOGICAL: No headaches, no weakness, PHYSICAL EXAMINATION: GENERAL: The patient is alert and oriented x3, not in any acute distress. Well developed, well nourished. HEENT: Pupils are round and equally reacting to light. EOMI. No scleral icterus. No conjunctival pallor. Normocephalic, atraumatic. No pharyngeal erythema. No thyromegaly. CARDIOVASCULAR: S1 and S2 present. No murmurs, rubs, or gallops. PULMONARY: Chest is clear to auscultation, no wheezing or crackles. ABDOMEN: Soft, nontender, nondistended, normoactive bowel sounds. No palpable organomegaly. MUSCULOSKELETAL: No joint swelling or deformity. EXTREMITIES: No cyanosis, clubbing, 1+ pitting edema lower extremity NEUROLOGICAL: Gross neurological examination did not reveal any focal deficits. SKIN: No rashes. Assessment and plan Shortness of breath Acute diastolic CHF Moderate pericardial effusion Bilateral pleural effusion Hyperlipidemia Monitor vital signs Monitor CBC Monitor CMP Continue telemetry monitoring Strict I's and O's, daily weights Continue Lopressor, Farxiga Cardiology following Pulmonology consulted Labs and medication were reviewed.. Continue same treatment. Continue with symptomatic treatment. Resume home medication. Monitor labs and vitals. DVT and GI prophylaxis. Further recommendations as per clinical course of the patient Dictation was produced using [employer] dictation software. please excuse any grammatical, word or spelling errors. Objective - Vital Signs Vital signs: Vital Signs Temp 98.3 F 05/12/24 08:40 Pulse 84 05/12/24 11:35 Resp 17 05/12/24 11:35 BP 110/69 05/12/24 11:35 Pulse Ox 97 05/12/24 11:35 FiO2 Intake & Output 05/11/24 05/12/24 05/12/24 18:59 06:59 18:59 Weight 48.988 kg 46.1 kg Other: Voiding Method Toilet Toilet # Voids 2 - Labs CBC & Chem 7: 05/11/24 04:34 05/12/24 06:39 Labs: Abnormal Lab Results - Last 24 Hours (Table) 05/12/24 Range/Units 06:39 BUN 22 H (7-17) mg/dL Creatinine 1.26 H (0.52-1.04) mg/dL
--- NOTE | 2024-05-12 16:12 | P.PN ---
Subjective Progress Note Date: 05/12/24 HISTORY OF PRESENT ILLNESS: This is a 84-year-old female with a past medical history significant for hy perlipidemia. Patient does not follow with a composing machine operator. We have been asked to see the patient in consultation for congestive heart failure. Patient examined at the bedside. Patient states last she started having palpitations. She states she called EMS and she reports that her heart rate was around 150 at that time. She also reports that her oxygen has been running low in the 80s. S he states that she went to [facility] and stayed overnight and then was discharged home the following morning. Patient reports feeling short of breath recently. She also reports having increased lower extremity edema. She reports a weight gain of about 10 pounds over the past few days. She denies any known history of CHF. She denies any history of CAD. She is nondiabetic. She is not a cigarette smoker. Patient did have an echocardiogram performed at [facility] revealing ejection fraction 55%, mild to moderate TR, RVSP 30 to 35 mmHg, mild MR, mild AR, moderate circumferential pericardial effusion with fibrin and moderate pleural effusion. No evidence of tamponade. Patient states she did not see a composing machine operator during that admission. DIAGNOSTICS: - EKG reveals sinus tachycardia. Repeat EKG reveals atrial flutter versus atrial tachycardia - Chest xray findings consistent with CHF. Mild pulmonary vascular congestion and small bilateral pleural effusions - Chest CTA negative for PE, large bilateral pleural effusions, moderate cardiomegaly - Laboratory data: WBC 5.0. Hemoglobin 9.8. Platelet count 263. D-dimer 2.89. Sodium 139. Potassium 3.6. BUN 14. Creatinine 1.05. Troponin negative x 1. proBNP 1550. - Current home cardiac medications include metoprolol succinate 25 mg at night and Lipitor 20 mg at night Progress note 05/12/2024 Patient reports that she is feeling better as compared to admission. On admission she has no swelling in the legs and shortness of breath. Echocardiogram shows moderate pericardial effusion, no evidence of RV collapse in diastole She denies any chest pain chest pressure. PHYSICAL EXAM: VITAL SIGNS: Reviewed. GENERAL: Well-developed in no acute distress. HEENT: Head is normocephalic. Pupils are equal, round. Sclerae anicteric. Mucous membranes of the mouth are moist. Neck supple. No JVD or thyromegaly LUNGS: Respirations even and unlabored. Lungs diminished to auscultation bilaterally. HEART: Regular rate and rhythm. S1 and S2 heard. ABDOMEN: Soft. Nondistended. Nontender. EXTREMITIES: Normal range of motion. No clubbing or cyanosis. Peripheral pulses intact. 2+ bilateral lower extremity edema NEUROLOGIC: Awake and alert. Oriented x 3. ASSESSMENT: Shortness of breath Acute heart failure with preserved EF Bilateral pleural effusions Moderate pericardial effusion without tamponade, noted on recent echo at [facility] Tachycardia, atrial flutter versus atrial tachycardia Hyperlipidemia PLAN: I will check for ESR and CRP levels I will restart her on diuretics. I will keep her on Bumex 1 mg p.o. daily for 5 days Continue Farxiga 10 mg daily. Kidney function is worsening slightly. Monitor kidney function and electrolytes Further recommendations to follow Objective - Vital Signs Vital signs: Vital Signs Temp 98.3 F 05/12/24 08:40 Pulse 84 05/12/24 11:35 Resp 17 05/12/24 11:35 BP 110/69 05/12/24 11:35 Pulse Ox 97 05/12/24 11:35 FiO2 Intake & Output 05/11/24 05/12/24 05/12/24 18:59 06:59 18:59 Weight 48.988 kg 46.1 kg Other: Voiding Method Toilet Toilet # Voids 2 - Labs CBC & Chem 7: 05/11/24 04:34 05/12/24 06:39 Labs: Abnormal Lab Results - Last 24 Hours (Table) 05/12/24 Range/Units 06:39 BUN 22 H (7-17) mg/dL Creatinine 1.26 H (0.52-1.04) mg/dL
[2024-05-12] MEDS: BUMETANIDE 1 MG TAB PO SCH (16:38)
[2024-05-13 07:03] LABS: African American GFR (CKD) 49 (>60 ml/min/1.73 sqM); Anion Gap 7 mmol/L; Blood Urea Nitrogen 22 mg/dL (7-17); Calcium 8.7 mg/dL (8.4-10.2); Carbon Dioxide 26 mmol/L (22-30); Chloride 105 mmol/L (98-107); Glucose 84 mg/dL (74-99); Non-African American GFR(CKD) 43 (>60 ml/min/1.73 sqM); Potassium 3.5 mmol/L (3.5-5.1); Sodium 138 mmol/L (137-145)
[2024-05-13 08:39] VITALS: RESP 17; TEMP 97.7
[2024-05-13] MEDS: METOPROLOL SUCCINATE (ER) 25 MG TAB.ER.24H PO SCH (09:18)
--- NOTE | 2024-05-13 12:37 | P.DS ---
Providers Date of admission: 05/11/24 08:25 Expected date of discharge: 05/13/24 Attending physician: Umesh Doss MD Consults: 05/10/24 18:18 Consult Physician Urgent Consulting Provider: [facility] Consult Reason/Comments: acute resp insuff, aechf Do you want consulting provider notified?: Yes 05/12/24 11:05 Consult Physician Routine Consulting Provider: [facility] Consult Reason/Comments: worseninng SOB Do you want consulting provider notified?: Already Contacted Primary care physician: [facility] Course: Discharge diagnoses; Shortness of breath Acute diastolic CHF Moderate pericardial effusion Bilateral pleural effusion Hyperlipidemia Hospital course; patient is a 84-year-old lady with past medical history significant for hyperlipidemia who presents the ER for shortness of breath. Patient stated she has been short of breath for the last 4 days, shortness of breath was present on rest as on exertion. There was no complaint of orthopnea or PND. There was complaint of swelling of lower extremities, patient states that she gained like 10 pounds over the last week. Patient does complain of palpitations. There is no complaint of chest pain. Patient was recently admitted to [facility] for similar complaints. Because of this shortness of breath patient presented the ER Initial lab work done in the ER showed showed W6.4, hemoglobin 10.6, platelet count 318, D-dimer 2.89, sodium 140, potassium 3.8, BUN 15, creatinine 1.02, troponin 0.012, Influenza A not detected Influenza B not detected RSV not detected COVID-19 not detected EKG done in the ER showed heart rate of 103, no ST segment elevation or depression seen, no T-wave inversions seen. Chest x-ray done in the ER showed findings most consistent with CHF CT chest done negative for PE Patient admitted to internal medicine service 05/12. Patient seen and examined. States she feels better compared to yesterday, still has swelling of lower extremities.Echocardiogram shows moderate pericardial effusion, no evidence of RV collapse in diastole 05/13. Patient seen examined. Cardiology evaluated, added Bumex 1 mg daily for 1 week, cleared patient for discharge. Being discharged in stable condition PHYSICAL EXAMINATION: GENERAL: The patient is alert and oriented x3, ill looking HEENT: Pupils are round and equally reacting to light. EOMI. No scleral icterus. No conjunctival pallor. Normocephalic, atraumatic. No pharyngeal erythema. No thyromegaly. CARDIOVASCULAR: S1 and S2 present. No murmurs, rubs, or gallops. PULMONARY: Chest is clear to auscultation, no wheezing or crackles. ABDOMEN: Soft, nontender, nondistended, normoactive bowel sounds. No palpable organomegaly. MUSCULOSKELETAL: No joint swelling or deformity. EXTREMITIES: No cyanosis, clubbing, or pedal edema. NEUROLOGICAL: Gross neurological examination did not reveal any focal deficits. SKIN: No rashes. Dictation was produced using [employer] dictation software. please excuse any grammatical, word or spelling errors. Patient Condition at Discharge: Stable Plan - Discharge Summary New Discharge Prescriptions: New RX: Bumetanide [BUMEX] 1 mg PO DAILY 7 Days #7 tab RX: Dapagliflozin Propanediol [Farxiga] 10 mg PO DAILY 30 Days #30 tab Continue RX: Montelukast [Singulair] 10 mg PO DAILY RX: Loratadine [Claritin] 10 mg PO DAILY RX: Atorvastatin [Lipitor] 20 mg PO HS RX: Vit C/E/Zn/Coppr/Lutein/Zeaxan [Preservision Areds 2 Softgel] 1 cap PO BID RX: Latanoprost [Latanoprost 0.005%] 1 drop BOTH EYES HS RX: Ibandronate Sodium [Boniva] 150 mg PO QMONTHLY RX: Colchicine 0.3 mg PO BID RX: Omeprazole [PriLOSEC] 20 mg PO HS RX: Metoprolol Succinate (ER) [Toprol XL] 25 mg PO HS Discharge Medication List RX: Atorvastatin [Lipitor] 20 mg PO HS 05/10/24 [History] RX: Colchicine 0.3 mg PO BID 05/10/24 [History] RX: Ibandronate Sodium [Boniva] 150 mg PO QMONTHLY 05/10/24 [History] RX: Latanoprost [Latanoprost 0.005%] 1 drop BOTH EYES HS 05/10/24 [History] RX: Loratadine [Claritin] 10 mg PO DAILY 05/10/24 [History] RX: Metoprolol Succinate (ER) [Toprol XL] 25 mg PO HS 05/10/24 [History] RX: Montelukast [Singulair] 10 mg PO DAILY 05/10/24 [History] RX: Omeprazole [PriLOSEC] 20 mg PO HS 05/10/24 [History] RX: Vit C/E/Zn/Coppr/Lutein/Zeaxan [Preservision Areds 2 Softgel] 1 cap PO BID 05/10/24 [History] RX: Bumetanide [BUMEX] 1 mg PO DAILY 7 Days #7 tab 05/13/24 [Rx] RX: Dapagliflozin Propanediol [Farxiga] 10 mg PO DAILY 30 Days #30 tab 05/13/24 [Rx] Follow up Appointment(s)/Referral(s): David Virgen MD [STAFF PHYSICIAN] - 1 Week Rakesh Schumacher MD [Primary Care Provider] - 1-2 days [facility] Visiting Nurse, [NON-STAFF] - Patient Instructions/Handouts: Metoprolol (By mouth), Dapagliflozin (By mouth), Pericardial Effusion (GEN) Discharge Disposition: HOME SELF-CARE
--- NOTE | 2024-05-13 12:58 | P.PN ---
Subjective Progress Note Date: 05/13/24 Principal diagnosis: Shortness of breath. Pulmonary consult dated May 12, 2024. 84-year-old female who was seen in the emergency department, on May 10. The patient presented with shortness of breath. She had been having shortness of breath for a few days prior to admission. The patient was recently at [facility], for 4 days, with shortness of breath. She states that she never was given a diagnosis. They thought maybe she had atrial fibrillation a nd/or congestive heart failure. The patient is seen today in room 354. Currently, she is on 2 L of oxygen. She is resting comfortably in bed. She is awake and alert. She is not receiving any IV fluids. Her chest x-ray shows evidence of CHF. Her CTA was negative for pulmonary embolism. Her N-terminal proBNP was elevated at 1550. Current labs include a white count of 5, hemoglobin 9.8, hematocrit 30.4, and a normal platelet count. Sodium 138, potassium 3.7, chlorides 107, CO2 24, BUN 22, creatinine 1.26. Viral screen was negative. TSH was normal. Progress note dated May 13, 2024. Very pleasant 84-year-old female seen in room 354. We saw her yesterday in consultation, for shortness of breath, secondary to CHF. Currently, the patient is on room air. She is not receiving any IV fluids. The patient is hoping to be discharged soon. She is waiting for the primary service, and cardiology to get the okay. Current labs include a sodium 138, potassium 3.5, chlorides 105, CO2 26, BUN 22, creatinine 1.18. Glucose is 84. Objective - Vital Signs Vital signs: Vital Signs Temp 97.7 F 05/13/24 08:30 Pulse 154 H 05/13/24 12:27 Resp 17 05/13/24 08:30 BP 114/67 05/13/24 08:30 Pulse Ox 92 L 05/13/24 11:49 FiO2 Intake & Output 05/12/24 05/13/24 05/13/24 18:59 06:59 18:59 Intake Total 20 0 Balance 20 0 Weight 46.2 kg 45.2 kg Intake: IV 20 0.9 NS FLUSH 20 Oral 0 Other: Voiding Method Toilet Toilet Toilet # Voids 2 - Exam No acute distress, oriented 3. Currently on room air. No respiratory distress. HEENT examination is grossly unremarkable. Mucous membranes are moist. No oral lesions. Neck supple. Full range of motion. No adenopathy thyromegaly or neck vein distention. Cardiovascular examination reveals regular rhythm rate. S1-S2 normal. No S3 or S4. Lungs reveal bibasilar crackles. Breath sounds equal bilaterally. No rhonchi or wheezes. Abdomen soft bowel sounds are heard. No masses or tenderness. Extremities are intact. No cyanosis or clubbing. Mild edema present. Skin is without rash or lesion. Neurologic examination is brief but nonfocal. - Labs CBC & Chem 7: 05/11/24 04:34 05/13/24 05:29 Labs: Abnormal Lab Results - Last 24 Hours (Table) 05/13/24 Range/Units 05:29 BUN 22 H (7-17) mg/dL Creatinine 1.18 H (0.52-1.04) mg/dL Assessment and Plan Assessment: Acute hypoxemic respiratory failure, likely secondary to CHF. History of hypertension. History of hyperlipidemia. History of gout. History of osteoporosis. History of gastroesophageal reflux disease. Plan: Plan dated May 12, 2024. The patient is seen today in room 354. She is resting comfortably in bed. She is on 2 L. She is not receiving any IV fluids. Her examination was reveals bibasilar crackles, and mild lower extremity edema, along with her chest x-ray and CAT scan which suggest fluid overload, suggest to me that the diagnosis is primarily congestive heart failure. Labs, x-rays, and all medications are reviewed. The patient is overall prognosis remains guarded. She is a lifelong non-smoker. She has no history of any lung disease. Plan dated May 13, 2024. The patient appears to be doing relatively well. The patient denies any increasing shortness of breath, cough, wheezing, chest tightness, chest pain, chest pressure, palpitations, or fluttering. The patient is hoping to be discharged soon. She is currently on room air. She is not receiving any IV fluids. Labs, x-rays, and all medications are reviewed. The patient is overall prognosis remains guarded. We will continue to follow. Time with Patient: Less than 30
--- NOTE | 2024-05-13 13:07 | P.PN ---
Subjective Progress Note Date: 05/13/24 HISTORY OF PRESENT ILLNESS: This is a 84-year-old female with a past medical history significant for hy perlipidemia. Patient does not follow with a calculus tutor. We have been asked to see the patient in consultation for congestive heart failure. Patient examined at the bedside. Patient states last she started having palpitations. She states she called EMS and she reports that her heart rate was around 150 at that time. She also reports that her oxygen has been running low in the 80s. S he states that she went to [facility] and stayed overnight and then was discharged home the following morning. Patient reports feeling short of breath recently. She also reports having increased lower extremity edema. She reports a weight gain of about 10 pounds over the past few days. She denies any known history of CHF. She denies any history of CAD. She is nondiabetic. She is not a cigarette smoker. Patient did have an echocardiogram performed at [facility] revealing ejection fraction 55%, mild to moderate TR, RVSP 30 to 35 mmHg, mild MR, mild AR, moderate circumferential pericardial effusion with fibrin and moderate pleural effusion. No evidence of tamponade. Patient states she did not see a calculus tutor during that admission. DIAGNOSTICS: - EKG reveals sinus tachycardia. Repeat EKG reveals atrial flutter versus atrial tachycardia - Chest xray findings consistent with CHF. Mild pulmonary vascular congestion and small bilateral pleural effusions - Chest CTA negative for PE, large bilateral pleural effusions, moderate cardiomegaly - Laboratory data: WBC 5.0. Hemoglobin 9.8. Platelet count 263. D-dimer 2.89. Sodium 139. Potassium 3.6. BUN 14. Creatinine 1.05. Troponin negative x 1. proBNP 1550. - Current home cardiac medications include metoprolol succinate 25 mg at night and Lipitor 20 mg at night Progress note 05/12/2024 Patient reports that she is feeling better as compared to admission. On admission she has no swelling in the legs and shortness of breath. Echocardiogram shows moderate pericardial effusion, no evidence of RV collapse in diastole She denies any chest pain chest pressure. 05/13/24 Patient seen and examined. She remains in a sinus rhythm. She states her lower extremity edema is improved. She states she has been active in her room. Blood pressure 114/67, heart rate 107, pulse ox 96% on 2 L nasal cannula. Repeat blood work reveals BUN 22 creatinine 1.18. PHYSICAL EXAM: VITAL SIGNS: Reviewed. GENERAL: Well-developed in no acute distress. HEENT: Head is normocephalic. Pupils are equal, round. Sclerae anicteric. Mucous membranes of the mouth are moist. Neck supple. No JVD or thyromegaly LUNGS: Respirations even and unlabored. Lungs diminished to auscultation bilaterally. HEART: Regular rate and rhythm. S1 and S2 heard. ABDOMEN: Soft. Nondistended. Nontender. EXTREMITIES: No clubbing or cyanosis. Peripheral pulses intact. Minimal bilateral lower extremity edema NEUROLOGIC: Awake and alert. Oriented x 3. ASSESSMENT: Shortness of breath Acute heart failure with preserved EF Bilateral pleural effusions Moderate pericardial effusion without tamponade, noted on recent echo at [facility] Tachycardia, atrial flutter versus atrial tachycardia Hyperlipidemia PLAN: Continue Bumex 1 mg p.o. daily Continue Farxiga 10 mg daily. Increase patient activity, patient is cleared for discharge from cardiology May follow-up in the office with Dr. Virgen in 1 to 2 weeks. Nurse practitioner note has been reviewed, I agree with documented findings and plan of care. Patient was seen and examined. Objective - Vital Signs Vital signs: Vital Signs Temp 97.7 F 05/13/24 08:30 Pulse 107 H 05/13/24 08:30 Resp 17 05/13/24 08:30 BP 114/67 05/13/24 08:30 Pulse Ox 96 05/13/24 08:30 FiO2 Intake & Output 05/12/24 05/13/24 05/13/24 18:59 06:59 18:59 Intake Total 20 Balance 20 Weight 46.2 kg Intake: IV 20 0.9 NS FLUSH 20 Other: Voiding Method Toilet Toilet Toilet # Voids 2 - Labs CBC & Chem 7: 05/11/24 04:34 05/13/24 05:29 Labs: Abnormal Lab Results - Last 24 Hours (Table) 05/13/24 Range/Units 05:29 BUN 22 H (7-17) mg/dL Creatinine 1.18 H (0.52-1.04) mg/dL
[2024-05-13 14:28] VITALS: PULSE 102
[2024-05-13 14:39] VITALS: BP 113/65
== END 2024-05-13 14:19 | disposition home or self-care (01) | DRG 291 ==
LOC: EC 11:22 → 1SOBS 18:18 → OBSVTOIN 05-11 08:25 → 3SCARD 05-11 20:07
PROVIDERS: ADMIT Internal Medicine; ATTEND Internal Medicine
DX: I11.0 Hypertensive heart disease with heart failure (principal); I50.31 Acute diastolic (congestive) heart failure; J96.01 Acute respiratory failure with hypoxia; I31.39 Other pericardial effusion (noninflammatory); I48.92 Unspecified atrial flutter; I47.19 Other supraventricular tachycardia; Z11.52 Encounter for screening for COVID-19; I48.91 Unspecified atrial fibrillation; E86.0 Dehydration; E78.5 Hyperlipidemia, unspecified; R60.0 Localized edema; I08.3 Combined rheumatic disorders of mitral, aortic and tricuspid valves; M81.0 Age-related osteoporosis without current pathological fracture; Z79.899 Other long term (current) drug therapy; Z87.19 Personal history of other diseases of the digestive system
CPT/HCPCS: 36415; 71046; 71275; 80048; 80053; 83605; 83735; 83880; 84443; 84484; 85025; 85379; 85610; 85730; 87636; 93005; 93306; 96374; 99285

== ENCOUNTER → 2024-05-20 | Outpatient (CLI) | payer MEDICARE ==
--- NOTE | 2024-05-20 11:15 | XR ---
EXAMINATION TYPE: XR chest 2V DATE OF EXAM: 05/20/2024 11:09 AM COMPARISON: 05/10/2024 CLINICAL INDICATION: Female, 84 years old with history of R06.02 SHORTNESS OF BREATH, , TECHNIQUE: Frontal and lateral views FINDINGS: Mild cardiomegaly. Mild hyperinflation. Increased interstitial density. Moderate and small right pleu ral effusions. Slightly decreased in the interval. IMPRESSION: COPD with superimposed mild CHF with pulmonary vascular congestion. Relatively similar. Small to mode rate bilateral pleural effusions with adjacent atelectasis are improving. [facility], Workstation: [email or web address], 05/20/2024 11:13 AM
== END | disposition home or self-care (01) ==
LOC: RADXRMAIN 10:31
PROVIDERS: ATTEND Internal Medicine Geriatric Medicine
DX: J44.9 Chronic obstructive pulmonary disease, unspecified (principal); I50.9 Heart failure, unspecified; J98.11 Atelectasis
CPT/HCPCS: 71046